=== PATIENT | female | born 1950 | race Caucasian/White ===

== ENCOUNTER 2022-11-22 10:48 | Emergency (ER) | payer MEDICARE, SELFPAY ==
--- NOTE | 2022-11-22 10:50 | ECG_ITS ---
Measurements Intervals [place] Rate: 112 P: 40 ME: 128 QRS: 35 QRSD: 90 T: 41 QT: 330 QTc: 452 Interpretive Statements SINUS TACHYCARDIA ABNORMAL ECG NO PREVIOUS ECG AVAILABLE FOR COMPARISON Electronically Signed On 11-23-2022 7:23:53 CDT by Lauro Helton D.O.
[2022-11-22 10:54] VITALS: BP 175/61; PULSE 110; RESP 18; TEMP 36.8; O2SAT 100
--- NOTE | 2022-11-22 11:13 | ED.ARRPALP ---
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 Patient was about few minutes to finish cataract surgery procedure, monitor showed tachycardia at 164 bpm, patient was asymptomatic, the staff referred patient to our emergency room with their impression that the patient have A-fib with RVR. Patient arrived with a monitor strip showing sinus tachycardia at 164 bpm, on arrival to the ED EKG showing sinus tachycardia at 112 bpm and patient was shaking, anxious and restless. Patient still me that she started feeling stressed at the end of the cataract procedure and was very worried. On arrival to the ED patient is still asymptomatic denying any fever, chills, nausea, vomiting, headache, chest pain, shortness of breath, palpitation, lightheadedness or dizziness. Related Data Home Medications Medication Instructions Recorded Confirmed alendronate 70 mg tablet 70 mg PO WEEKLY 09/21/19 11/15/22 aspirin 81 mg tablet,delayed 81 mg PO DAILY 09/21/19 11/15/22 release (Adult Low Dose Aspirin) calcium polycarbophil 625 mg 1,250 mg PO DAILY 09/21/19 11/15/22 tablet (FiberCon) doxycycline hyclate 20 mg tablet 20 mg PO Q12H 09/21/19 11/15/22 multivitamin (Multiple Vitamins 1 tablet PO DAILY 09/21/19 11/15/22 tablet) potassium gluconate 595 mg (99 mg) 595 mg PO DAILY 09/21/19 11/15/22 tablet magnesium gluconate 27 mg 27 mg PO DAILY 09/22/19 11/15/22 magnesium (500 mg) tablet (Mag-G) cholecalciferol (vitamin D3) 25 50 mcg PO DAILY 04/05/20 11/15/22 mcg (1,000 unit) capsule levocetirizine 5 mg tablet (Xyzal) 5 mg PO DAILY 04/05/20 11/15/22 Allergies Allergy/AdvReac Type Severity Reaction Status Date / Time calamine Allergy Intermediate Rash Verified 11/15/22 09:58 bacitracin Allergy Mild Rash Verified 11/15/22 09:58 adhesive Allergy Unknown BLISTERS Verified 11/15/22 09:58 Sulfa (Sulfonamide Allergy Unknown SWELLING Verified 11/15/22 09:58 Antibiotics) Review of Systems Review of Systems: All systems reviewed & are unremarkable except as noted in HPI and below PMFSH Past Medical History Medical History Hyperglycemia 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 Overweight (BMI 25.0-29.9) Family History Family History Sibling Patient's brother is in good health Family history of malignant neoplasm of gastrointestinal tract Patient's sister is Mother Family history of malignant neoplasm of breast in first degree relative, Onset Age: 42 Patient's mother is Father Patient's father is Acute myocardial infarction Social History Social History Smoking packs per day: 1 Smoking cigarettes per day: 20.0 Years smoked: 40 Smoking pack-years: 40.00 Smoking status: Former smoker Tobacco type: cigarettes Second hand tobacco smoke exposure: No Smoking end date: 06/30/19 Alcohol intake: never Substance use: never Lack of Transportation: No Lack of Food: Never True Current Housing: I Have Housing Concerned About Future Housing: No Difficulty Paying Gas/Electric Bills: No Currently Unemployed: No Education: Master's Degree or Higher Difficulty w/ Childcare or Family Care: No Exam Narrative: General appearance: Well-developed, well-nourished Skin: Normal color Head: Normocephalic, nontraumatic Eyes: Clear conjunctiva ENT: Oropharynx normal, ears normal, nose normal Neck: Supple, nontender Chest and respiratory: Airway patent, no respi
[2022-11-22] MEDS: LORazepam INJ (*CRX) 2 MG/ML VIAL 1 MG IV PUSH (11:18)
[2022-11-22 11:31] VITALS: BP 132/66; PULSE 98; RESP 17; O2SAT 95
--- NOTE | 2022-11-22 11:39 | PC.NURSE ---
Per MD mora, no blood work needed prior to discharge.
== END 2022-11-22 11:40 | disposition home or self-care (01) ==
PROVIDERS: Emergency Provider Emergency Medicine; PCP Internal Medicine
DX: R00.0 Tachycardia, unspecified (principal); F41.9 Anxiety disorder, unspecified; Z87.891 Personal history of nicotine dependence
CPT/HCPCS: 93005; 96374; 99284; J2060

== ENCOUNTER 2022-12-10 08:07 | Outpatient (CLI) | payer MEDICARE, SELFPAY ==
--- NOTE | ~2022-12-10 | US_ITS ---
Abdominal Sonogram: Real-time sonographic imaging of the abdomen was performed. Clinical History: Abnormal findings of blood chemistry Findings: The liver appears heterogeneous, with no evidence of mass lesion or bile duct dilatation. There is mild nodularity liver surface. Possible varices noted in the right upper quadrant. Main port al vein demonstrates normal direction of flow. The spleen is upper limits of normal in size without e vidence of focal lesion. The gallbladder is well distended, without definite gallstone. Probable mil d adenomyomatosis or cholesterolosis. The common bile duct measures 9 mm. The visualized pancreas, a scott, and IVC are unremarkable. The right kidney measures 12.6 cm in length and the left kidney reid ures 11.9 cm. There is no hydronephrosis or renal calculus. Impression: Probable mild adenomyomatosis or cholesterolosis of the gallbladder. Heterogeneous hepatic echotexture and mild nodularity the contour of liver suggests cirrhotic change. Correlate clinically and with LFTs. Borderline splenomegaly and possible varices, which could be associated with underlying cirrhosis. Reviewed, dictated and finalized at location M. Impression: Probable mild adenomyomatosis or cholesterolosis of the gallbladder. Heterogeneous hepatic echotexture and mild nodularity the contour of liver sugg ests cirrhotic change. Correlate clinically and with LFTs. Borderline splenomegaly and possible varices, which could be associated with un derlying cirrhosis.
--- NOTE | 2022-12-12 12:26 | WPDHOLTEREM ---
Holter/Event Monitor Holter/Event Monitor Date of procedure: 12/10/22 Holter/Event Procedure: 48 Hr Holter Monitor Indications: Abnormal blood chemistry Conclusion: 1. 48 hour holter monitor on 12/10/22. 2. Underlying rhythm is sinus rhythm. HR range 68-136 bpm; average HR 90 bpm. 3. There are 51 premature supraventricular complexes. No supraventricular tachycardia. 4. There are 17 premature ventricular complexes. No ventricular tachycardia. 5. No sinoatrial or atrioventricular blocks. No significant pauses greater than 2 seconds. 6. No symptoms available for correlation.
== END 2022-12-10 08:08 | disposition home or self-care (01) ==
PROVIDERS: PCP Internal Medicine; Visit Provider Internal Medicine
DX: R79.89 Other specified abnormal findings of blood chemistry (principal); R00.2 Palpitations
CPT/HCPCS: 76700; 93225; 93226

== ENCOUNTER 2023-03-25 01:30 | Day surgery (SDC) | payer MEDICARE, SELFPAY ==
[2023-03-14 08:29] VITALS: BMI 30.2
--- NOTE | 2023-03-21 11:19 | SUR.PREOP ---
Patient called regarding upcoming procedure. Message left on patient's voicemail regarding preop instructions and appointment times. Call back number given.
[2023-03-25 06:51] VITALS: BP 146/73; PULSE 90; RESP 18; TEMP 36.2; O2SAT 99; BMI 30.1
[2023-03-25] MEDS: LACTATED RINGERS 1,000 ML 150 ML IV CONT (06:53)
[2023-03-25 07:11] LABS: Glucose Point of Care 113 mg/dl (65-105)
--- NOTE | 2023-03-25 07:52 | WPDANESEPPF ---
Anes - Initial Pre Proc Eval Procedure: Operation Date: 03/25/23 08:00 Proposed Procedures p Esophagogastroduodenoscopy - Jose Maria Bee MD Date/Time: 03/25/23 07:52 Surgeon: Jose Maria Bee MD Pre Op Diagnosis: unspecified cirrhosis of liver Patient Data Age: 72 Gender: F Height: 1.63 m Weight: 79.6 kg Last Vital Signs Temp 97.1 F L 03/25/23 06:51 Pulse 90 03/25/23 06:51 Resp 18 03/25/23 06:51 BP 146/73 H 03/25/23 06:51 Pulse Ox 99 03/25/23 06:51 O2 Del Method Room Air 03/25/23 06:51 Allergies Allergy/AdvReac Type Severity Reaction Status Date / Time calamine Allergy Intermediate Rash Verified 03/25/23 06:47 bacitracin Allergy Mild Rash Verified 03/25/23 06:47 adhesive Allergy Unknown BLISTERS Verified 03/25/23 06:47 Sulfa (Sulfonamide Allergy Unknown SWELLING Verified 03/25/23 06:47 Antibiotics) Home Medications Medication Instructions Recorded Confirmed Type alendronate 70 mg tablet 70 mg PO WEEKLY 09/21/19 03/25/23 History aspirin 81 mg tablet,delayed 81 mg PO DAILY 09/21/19 03/25/23 History release (Adult Low Dose Aspirin) calcium polycarbophil 625 mg 1,250 mg PO DAILY 09/21/19 03/25/23 History tablet (FiberCon) multivitamin (Multiple Vitamins 1 tablet PO DAILY 09/21/19 03/25/23 History tablet) potassium gluconate 595 mg (99 mg) 595 mg PO DAILY 09/21/19 03/25/23 History tablet magnesium gluconate 27 mg 27 mg PO DAILY 09/22/19 03/25/23 History magnesium (500 mg) tablet (Mag-G) blood-glucose meter (OneTouch #1 ea 11/05/19 03/25/23 Rx Verio Meter) cholecalciferol (vitamin D3) 25 50 mcg PO DAILY 04/05/20 03/25/23 History mcg (1,000 unit) capsule levocetirizine 5 mg tablet (Xyzal) 5 mg PO DAILY PRN Allergies 04/05/20 03/25/23 History ergocalciferol (vitamin D2) 1,250 50,000 unit PO WEEKLY #13 caps 10/22/22 03/25/23 Rx mcg (50,000 unit) capsule atorvastatin 20 mg tablet 20 mg PO DAILY #90 tabs 11/21/22 03/25/23 Rx lisinopril 20 mg tablet 20 mg PO DAILY #90 tabs 12/03/22 03/25/23 Rx levothyroxine 125 mcg tablet 125 mcg PO DAILY #90 tabs 01/21/23 03/25/23 Rx metformin 500 mg tablet 500 mg PO .COMPLEX #270 tabs 02/23/23 03/25/23 Rx blood sugar diagnostic (OneTouch #50 strips 03/12/23 03/25/23 Rx Verio test strips) Adult Probiotic 1 tab-cap PO DAILY 03/14/23 03/25/23 History cetirizine 5 mg tablet 5 mg PO DAILY 03/14/23 03/25/23 History doxycycline hyclate 20 mg tablet 20 mg PO BID 03/14/23 03/25/23 History fiber 1 tablet PO DAILY 03/14/23 03/25/23 History fluticasone propionate 50 2 spray intranasal DAILY PRN 03/14/23 03/25/23 History mcg/actuation nasal Allergy Symptoms spray,suspension Laboratory Tests 03/25/23 07:09 POC Capillary Glucose 113 H mg/dl (65-105) Patient hx anesthesia problems: none Family hx anesthesia problems: none Results Review: All pre-operative results and documents have been reviewed as part of the pre-operative evaluation. 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
--- NOTE | 2023-03-25 07:54 | PM.HPGS ---
History of Present Illness History of Present Illness Consent: Risks, benefits, and alternatives have been discussed and questions answered. Patient agrees to proceed with procedure. Chief complaint: unspecified cirrhosis of liver Narrative: Edis Zamarripa is a 72 year old female with harp cirrhosis here for egd to assess for varices, etc Review of Systems Constitutional: Constitutional: Denies headache(s) and Denies weakness Eyes: Eyes: Denies blurry vision ENT: Reports Normal hearing present, Denies headache(s) and Denies neck pain Cardiovascular: Cardiovascular: Denies chest pain and Denies dyspnea Respiratory: Respiratory: Denies dyspnea Gastrointestinal: Gastrointestinal: Reports no additional gastrointestinal complaints Genitourinary: Genitourinary: Denies dysuria Musculoskeletal: Musculoskeletal: Denies neck pain Integumentary/Breasts: Skin/Breast: Denies dry skin Neurologic: Reports Normal hearing present, Denies headache(s) and Denies weakness Psychiatric: Psychiatric: Denies anxiety Endocrine: Endocrine: Denies change in body appearance Hematologic/Lymphatic: Hematologic/Lymphatic: Denies easy bleeding Allergic/Immunologic: Allergic/Immunologic: Denies urticaria PMFSH Past Medical History Medical History Cirrhosis of liver Hyperglycemia 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 Overweight (BMI 25.0-29.9) Surgical History Surgical History History of cataract surgery left eye 11/22/22 Family History Family History Sibling Patient's brother is in good health Family history of malignant neoplasm of gastrointestinal tract Patient's sister is Mother Family history of malignant neoplasm of breast in first degree relative, Onset Age: 42 Patient's mother is Father Patient's father is Acute myocardial infarction Social History Social History Smoking packs per day: 1 Smoking cigarettes per day: 20.0 Years smoked: 40 Smoking pack-years: 40.00 Smoking status: Former smoker Tobacco type: cigarettes Second hand tobacco smoke exposure: No Smoking end date: 06/30/19 Alcohol intake: never Substance use: never Lack of Transportation: No Lack of Food: Never True Current Housing: I Have Housing Concerned About Future Housing: No Difficulty Paying Gas/Electric Bills: No Currently Unemployed: No Education: Master's Degree or Higher Difficulty w/ Childcare or Family Care: No Living arrangements: with family Spiritual care concerns: No Meds Home Medications and Allergies Home Medications Medication Instructions Recorded Confirmed Type alendronate 70 mg tablet 70 mg PO WEEKLY 09/21/19 03/25/23 History aspirin 81 mg tablet,delayed 81 mg PO DAILY 09/21/19 03/25/23 History release (Adult Low Dose Aspirin) calcium polycarbophil 625 mg 1,250 mg PO DAILY 09/21/19 03/25/23 History tablet (FiberCon) multivitamin (Multiple Vitamins 1 tablet PO DAILY 09/21/19 03/25/23 History tablet) potassium gluconate 595 mg (99 mg) 595 mg PO DAILY 09/21/19 03/25/23 History tablet magnesium gluconate 27 mg 27 mg PO DAILY 09/22/19 03/25/23 History magnesium (500 mg) tablet (Mag-G) blood-glucose meter ([employer] #1 ea 11/05/19 03/25/23 Rx Verio Meter) cholecalciferol (vitamin D3) 25 50 mcg PO DAILY 04/05/20 03/25/23 History mcg (1,000 unit) capsule levocetirizine 5 mg tablet (Xyzal) 5 mg PO DAILY PRN Allergies 04/05/20 03/25/23 History ergocalciferol (vitamin D2) 1,250 50,000 unit PO WEEKLY #13 caps 10/22/22 03/25/23 Rx mcg (50,000 unit) capsule atorvastatin 20 mg tablet 20 mg PO DAILY #90 tabs 11/21/22 03/25/23 Rx lisinopril 20 mg tablet 20 mg PO DAILY #90 tabs 12/03/22
[2023-03-25 08:10] VITALS: BP 105/46; PULSE 87; RESP 20; O2SAT 95
[2023-03-25 08:20] VITALS: BP 119/55; PULSE 79; RESP 16; O2SAT 97
[2023-03-25 08:30] VITALS: BP 127/69; PULSE 84; RESP 22; O2SAT 99
== END 2023-03-25 08:33 | disposition home or self-care (01) ==
PROVIDERS: PCP Internal Medicine; Visit Provider Internal Medicine Gastroenterology
PROC: 0DJ08ZZ Inspection of Upper Intestinal Tract, Via Natural or Artificial Opening Endoscopic (ICD-10-PCS; CPT 43235; principal; 2023-03-25 08:00)
DX: K74.60 Unspecified cirrhosis of liver (principal); K44.9 Diaphragmatic hernia without obstruction or gangrene; K29.70 Gastritis, unspecified, without bleeding; Z79.82 Long term (current) use of aspirin; Z79.84 Long term (current) use of oral hypoglycemic drugs; Z87.891 Personal history of nicotine dependence; E66.9 Obesity, unspecified; Z68.30 Body mass index [BMI] 30.0-30.9, adult
CPT/HCPCS: 43235; 82948; J2704; J7120

== ENCOUNTER 2023-08-18 07:28 | Outpatient (CLI) | payer MEDICARE, SELFPAY ==
--- NOTE | ~2023-08-18 | CT_ITS ---
CT of the Abdomen and Pelvis: Indication: Cirrhosis Technique: 2.5 mm axial scans were obtained through the abdomen and pelvis following intravenous adm inistration of 100 cc of Omnipaque 350. Dose reduction technique was used on this scan by utilizing a utomated exposure control and iterative reconstruction technique. The dose-length product (DLP) was 5 50.60 mGy-cm. Findings: Scans through the lung bases demonstrate large calcified right basilar granuloma. Probable tiny gallstones. Liver demonstrates a somewhat nodular morphology, suggestive of cirrhosis. No focal hepatic mass or biliary dilatation. There are prominent varices in the right abdomen. The sp ann marie, pancreas, adrenals and kidneys are within normal limits. There are atherosclerotic calcificatio ns of the aorta. No lymphadenopathy. No bowel obstruction or bowel wall thickening. There is no evidence to suggest acute appendicitis. Images through the pelvis were performed. Urinary bladder unremarkable. No pelvic mass seen. No ascit es. Impression: Cirrhotic change of the liver with right abdominal varices. Probable tiny gallstones. Reviewed, dictated and finalized at location . Impression: Cirrhotic change of the liver with right abdominal varices. Probable tiny gallstones.
== END 2023-08-18 07:29 | disposition home or self-care (01) ==
PROVIDERS: PCP Internal Medicine; Visit Provider Nurse Practitioner
DX: K74.60 Unspecified cirrhosis of liver (principal); R74.8 Abnormal levels of other serum enzymes; L98.9 Disorder of the skin and subcutaneous tissue, unspecified
CPT/HCPCS: 74177; Q9967

== ENCOUNTER 2024-03-03 01:31 | Day surgery (SDC) | payer MEDICARE, SELFPAY ==
[2024-02-20 10:08] VITALS: BMI 30.6
[2024-03-03 08:28] VITALS: BP 178/62; PULSE 97; RESP 18; TEMP 36.4; O2SAT 96; BMI 29.5
[2024-03-03 08:45] LABS: Glucose Point of Care 123 mg/dl (65-105)
[2024-03-03] MEDS: LACTATED RINGERS 1,000 ML 150 ML IV CONT (08:49)
--- NOTE | 2024-03-03 09:06 | WPDANESEPPF ---
Anes - Initial Pre Proc Eval Procedure: Operation Date: 03/03/24 10:00 Proposed Procedures p Screening Colonoscopy - Jamison Pablo MD Date/Time: 03/03/24 09:06 Surgeon: Jamison Pablo MD Pre Op Diagnosis: Hx Colon Polyps Patient Data Age: 73 Gender: F Height: 1.63 m Weight: 78 kg Last Vital Signs Temp 97.6 F 03/03/24 08:28 Pulse 97 03/03/24 08:28 Resp 18 03/03/24 08:28 BP 178/62 H 03/03/24 08:28 Pulse Ox 96 03/03/24 08:28 O2 Del Method Room Air 03/03/24 08:28 Allergies Allergy/AdvReac Type Severity Reaction Status Date / Time calamine Allergy Intermediate Rash Verified 03/03/24 08:26 bacitracin Allergy Mild Rash Verified 03/03/24 08:26 adhesive Allergy Unknown BLISTERS Verified 03/03/24 08:26 Sulfa (Sulfonamide Allergy Unknown SWELLING Verified 03/03/24 08:26 Antibiotics) Home Medications Medication Instructions Recorded Confirmed Type aspirin 81 mg tablet,delayed 81 mg PO DAILY 09/21/19 03/03/24 History release (Adult Low Dose Aspirin) multivitamin (Multiple Vitamins 1 tablet PO DAILY 09/21/19 03/03/24 History tablet) potassium gluconate 595 mg (99 mg) 595 mg PO DAILY 09/21/19 03/03/24 History tablet magnesium gluconate 27 mg 27 mg PO DAILY 09/22/19 03/03/24 History magnesium (500 mg) tablet (Mag-G) blood-glucose meter (OneTouch #1 ea 11/05/19 03/03/24 Rx Verio Meter) levocetirizine 5 mg tablet (Xyzal) 5 mg PO DAILY PRN Allergies 04/05/20 03/03/24 History blood sugar diagnostic (OneTouch #50 strips 03/12/23 03/03/24 Rx Verio test strips) Adult Probiotic 1 tab-cap PO DAILY 03/14/23 03/03/24 History doxycycline hyclate 20 mg tablet 20 mg PO BID 03/14/23 03/03/24 History fiber 1 tablet PO DAILY 03/14/23 03/03/24 History fluticasone propionate 50 2 spray intranasal DAILY PRN 03/14/23 03/03/24 History mcg/actuation nasal Allergy Symptoms spray,suspension ergocalciferol (vitamin D2) 1,250 50,000 unit PO WEEKLY #13 caps 07/15/23 03/03/24 Rx mcg (50,000 unit) capsule lisinopril 20 mg tablet 20 mg PO DAILY #90 tabs 10/13/23 03/03/24 Rx levothyroxine 100 mcg tablet 100 mcg PO DAILY #90 tabs 10/27/23 03/03/24 Rx metformin 500 mg tablet 500 mg PO .COMPLEX #270 tabs 01/14/24 03/03/24 Rx betamethasone valerate 0.1 % 1 applic topical BID PRN Rash 02/20/24 03/03/24 History topical cream furosemide 20 mg tablet (Lasix) 20 mg PO PRN PRN Edema 02/20/24 03/03/24 History Laboratory Tests 03/03/24 08:39 POC Capillary Glucose 123 H mg/dl (65-105) Patient hx anesthesia problems: none Family hx anesthesia problems: none Results Review: All pre-operative results and documents have been reviewed as part of the pre-operative evaluation. 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 Nodular lesion on surface of skin Overweight (BMI 25.0-29.9) Peripheral edema Splenomegaly Surgical History Surgical History History of cataract surgery left eye 11/22/22 Family History Family History Sibling Patient's brother is in good health Family history of malignant neoplasm of gastrointestinal tract Patient's sister is Mother Family history of malignant neoplasm of breast in first degree relative, Onset Age: 42 Patient's mother is Father Patient's father is Acute myocardial infarction Social History Social History Smoking packs per day: 1 Smoking cigarettes per day: 20.0 Years smoked: 40 Smoking pack-years: 40.00 Smoking status: Former smoker Tobacco type:
--- NOTE | 2024-03-03 09:36 | PM.IMHP ---
H&P: HPI History of Present Illness Date/Time: 03/03/24 09:36 Chief Complaint: History of colon polyps Narrative: the patient is here for her surveillance colonoscopy. 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 Nodular lesion on surface of skin Overweight (BMI 25.0-29.9) Peripheral edema Splenomegaly Surgical History Surgical History History of cataract surgery left eye 11/22/22 Family History Family History Sibling Patient's brother is in good health Family history of malignant neoplasm of gastrointestinal tract Patient's sister is Mother Family history of malignant neoplasm of breast in first degree relative, Onset Age: 42 Patient's mother is Father Patient's father is Acute myocardial infarction Social History Social History Smoking packs per day: 1 Smoking cigarettes per day: 20.0 Years smoked: 40 Smoking pack-years: 40.00 Smoking status: Former smoker Tobacco type: cigarettes Second hand tobacco smoke exposure: No Smoking end date: 06/30/19 Alcohol intake: never Substance use: never Lack of Transportation: No Lack of Food: Never True Current Housing: I Have Housing Concerned About Future Housing: No Difficulty Paying Gas/Electric Bills: No Currently Unemployed: No Education: Master's Degree or Higher Difficulty w/ Childcare or Family Care: No Living arrangements: with family Spiritual care concerns: No Meds Home Medications and Allergies Home Medications Medication Instructions Recorded Confirmed Type aspirin 81 mg tablet,delayed 81 mg PO DAILY 09/21/19 03/03/24 History release (Adult Low Dose Aspirin) multivitamin (Multiple Vitamins 1 tablet PO DAILY 09/21/19 03/03/24 History tablet) potassium gluconate 595 mg (99 mg) 595 mg PO DAILY 09/21/19 03/03/24 History tablet magnesium gluconate 27 mg 27 mg PO DAILY 09/22/19 03/03/24 History magnesium (500 mg) tablet (Mag-G) blood-glucose meter (OneTouch #1 ea 11/05/19 03/03/24 Rx Verio Meter) levocetirizine 5 mg tablet (Xyzal) 5 mg PO DAILY PRN Allergies 04/05/20 03/03/24 History blood sugar diagnostic (OneTouch #50 strips 03/12/23 03/03/24 Rx Verio test strips) Adult Probiotic 1 tab-cap PO DAILY 03/14/23 03/03/24 History doxycycline hyclate 20 mg tablet 20 mg PO BID 03/14/23 03/03/24 History fiber 1 tablet PO DAILY 03/14/23 03/03/24 History fluticasone propionate 50 2 spray intranasal DAILY PRN 03/14/23 03/03/24 History mcg/actuation nasal Allergy Symptoms spray,suspension ergocalciferol (vitamin D2) 1,250 50,000 unit PO WEEKLY #13 caps 07/15/23 03/03/24 Rx mcg (50,000 unit) capsule lisinopril 20 mg tablet 20 mg PO DAILY #90 tabs 10/13/23 03/03/24 Rx levothyroxine 100 mcg tablet 100 mcg PO DAILY #90 tabs 10/27/23 03/03/24 Rx metformin 500 mg tablet 500 mg PO .COMPLEX #270 tabs 01/14/24 03/03/24 Rx betamethasone valerate 0.1 % 1 applic topical BID PRN Rash 02/20/24 03/03/24 History topical cream furosemide 20 mg tablet (Lasix) 20 mg PO PRN PRN Edema 02/20/24 03/03/24 History Allergies Allergy/AdvReac Type Severity Reaction Status Date / Time calamine Allergy Intermediate Rash Verified 03/03/24 08:26 bacitracin Allergy Mild Rash Verified 03/03/24 08:26 adhesive Allergy Unknown BLISTERS Verified 03/03/24 08:26 Sulfa (Sulfonamide Allergy Unknown SWELLING Verified 03/03/24 08:26 Antibiotics)
[2024-03-03 10:09] VITALS: BP 114/64; PULSE 91; RESP 20; O2SAT 96
[2024-03-03 10:19] VITALS: BP 121/53; PULSE 80; RESP 19; O2SAT 100
[2024-03-03 10:28] VITALS: BP 131/71; PULSE 82; RESP 22; O2SAT 100
== END 2024-03-03 10:42 | disposition home or self-care (01) ==
PROVIDERS: PCP Internal Medicine; Referring Provider Internal Medicine Gastroenterology; Visit Provider Internal Medicine Gastroenterology
PROC: 0DJD8ZZ Inspection of Lower Intestinal Tract, Via Natural or Artificial Opening Endoscopic (ICD-10-PCS; CPT 45378; principal; 2024-03-03 10:00)
DX: Z12.11 Encounter for screening for malignant neoplasm of colon (principal); D12.2 Benign neoplasm of ascending colon; D12.4 Benign neoplasm of descending colon; K63.5 Polyp of colon; K57.30 Diverticulosis of large intestine without perforation or abscess without bleeding; K74.60 Unspecified cirrhosis of liver; R73.9 Hyperglycemia, unspecified; Z79.82 Long term (current) use of aspirin; Z79.84 Long term (current) use of oral hypoglycemic drugs; Z98.890 Other specified postprocedural states; Z87.891 Personal history of nicotine dependence; Z80.0 Family history of malignant neoplasm of digestive organs; Z80.3 Family history of malignant neoplasm of breast; Z82.49 Family history of ischemic heart disease and other diseases of the circulatory system
CPT/HCPCS: 45385; 82948; 88305; J2003; J2704; J7120

== ENCOUNTER 2024-03-15 07:11 | Outpatient (CLI) | payer MEDICARE, SELFPAY ==
--- NOTE | ~2024-03-15 | US_ITS ---
EXAMINATION: US right upper quadrant DATE: 03/15/2024 09:34 INDICATION: Unspecified cirrhosis of liver. TECHNIQUE: Multiple grayscale and Doppler ultrasound images of the abdomen were obtained. COMPARISON: CT abdomen and pelvis 08/18/2023 FINDINGS: The visualized portions of the head, body, and tail of the pancreas are normal. The liver d emonstrates surface nodularity, consistent with cirrhosis. There is antegrade flow in main portal vei n. The gallbladder is distended, likely secondary to fasting. There are gallstones in the gallbladder . No gallbladder wall thickening or sonographic López sign. The common duct is normal and measures 5 mm. IMPRESSION: 1. Cirrhosis of the liver. 2. Cholelithiasis. Reviewed, dictated and finalized at location B.
== END 2024-03-15 07:12 | disposition home or self-care (01) ==
PROVIDERS: PCP Internal Medicine; Visit Provider Internal Medicine Gastroenterology
DX: K74.60 Unspecified cirrhosis of liver (principal); K76.0 Fatty (change of) liver, not elsewhere classified; K80.20 Calculus of gallbladder without cholecystitis without obstruction
CPT/HCPCS: 76705

== ENCOUNTER 2024-07-20 07:45 | Outpatient (CLI) | payer MEDICARE, SELFPAY | END 2024-07-20 07:46 | disposition home or self-care (01) | PROVIDERS: PCP Internal Medicine; Visit Provider Internal Medicine Gastroenterology | DX: K80.20 Calculus of gallbladder without cholecystitis without obstruction (principal); K74.60 Unspecified cirrhosis of liver; R79.89 Other specified abnormal findings of blood chemistry | CPT/HCPCS: 76705 ==

== ENCOUNTER 2024-12-14 13:30 | Outpatient (CLI) | payer MEDICARE, SELFPAY ==
--- NOTE | ~2024-12-14 | DEXA_ITS ---
Bone Density Report Name: AAMIR RANGEL Age: 74 Sex: Female Ethnicity: White Date of : 1950 Indication: postmenopausal; screening for osteoporosis; height loss; cancer; Referring Provider: BRAYDON SANCHEZ Study: Bone densitometry was performed. Exam Date: December 14, 2024 Accession number: [id number] Bone Density: Region BMD T-score Z-score Classification AP Spine(L1-L4) 1.152 1.0 3.4 Normal Femoral Neck (Left) 0.693 -1.4 0.7 Osteopenia Total Hip (Left) 0.897 -0.4 1.4 Normal Femoral Neck (Right) 0.661 -1.7 0.4 Osteopenia Total Hip (Right) 0.841 -0.8 1.0 Normal Total Hip Mean 0.869 -0.6 1.2 Normal World Health Organization criteria for BMD impression classify patients as: Normal (T-score at or above -1.0), Osteopenia (T-score between -1.0 and -2.5), or Osteoporosis (T-score at or below -2.5). 10-year Fracture Risk(1): Major Osteoporotic Fracture 11% Hip Fracture 2.4% Reported Risk Factors: [place] (), Neck BMD=0.661, BMI=32.6 (1) FRAX(R) Version 3.08. Fracture probability calculated for an untreated patient. Fracture probability may be lower if the patient has received treatment. Clinical Information Provided by Patient: Has used the following medications: Fosamax (i.e. alendronate), Vitamin D Has the following medical conditions: Cancer Patient maximum height was 64 Menopause Age: 39 No regular weight bearing exercise Drinks caffeinated beverages Onset of menses at age 11 Number of children 0 Impression: The patient has low bone mass, based on the Right Femoral Neck T-score. The patient has an estimated ten-year risk of hip fracture of 2.4% and an estimated ten-year risk of major fracture of 11%, based on the WHO FRAX algorithm. Discussion: BONE DENSITY IS LOW AT ONE OR MORE SKELETAL SITES. This patient's lowest T-score is low at one or more skeletal sites. It meets the World Health Organization's (WHO) criteria for ?low bone mass? (T-score between -1.0 and -2.5). The patient's 10-year risk of fracture as calculated by FRAX is less than the threshold where pharmacological therapy is recommended by the National Osteoporosis Foundation (NOF). However, all treatment decisions require clinical judgment and consideration of individual patient factors, including patient preferences, comorbidities, previous drug use, risk factors not captured in the FRAX model (e.g., frailty, falls, vitamin D deficiency, increased bone turnover, interval significant decline in bone density) and possible under or overestimation of fracture risk by FRAX. The patient should follow a healthful lifestyle (good nutrition with adequate calcium and vitamin D, and appropriate weight-bearing exercise). Follow-Up: Consider repeating this study in 2 to 3 years to reassess this patient's status, or sooner if there is some new clinical indication. Reported by: KEVIN on 12/14/2024 2:18:00 PM. Reviewed, dictated and finalized at location A.
--- OUTSIDE RECORDS SUMMARY | 2024-12-14 13:33 | XMS_ITS | Clinical Summary ---
Author Organization [facility] Address [address] [place] [address] Phone Care Team Providers Care Or Scrub Tech Name Role Phone Prince Torres DO Primary Care Provider [phone] Allergies Active Allergy Reactions Criticality Noted Date Comments Bacitracin Rash Medium 04/21/2017 Other Rash 04/21/2017 Adhesive on band-aids Sulfa Antibiotics Rash,Swelling High 04/21/2017 Medications alendronate (FOSAMAX) 70 MG Tablet Take 70 mg by mouth every 7 days. Takes on Sundays. Active Multiple Vitamins-Minerals (MULTIVITAMIN PO) Take 1 Tab by mouth daily. Active Aspirin 81 MG Tablet Take 81 mg by mouth daily. Active Levocetirizine Dihydrochloride (XYZAL PO) Take 1 Tab by mouth daily. Active Calcium Carbonate (CALCIUM 600 PO)Indications:OTC Take 1,200 Tabs by mouth daily. Indications: OTC Active FIBER PO Take 2 Tabs by mouth daily. Active POTASSIUM PO Take 595 mg by mouth daily. Active Cholecalciferol (VITAMIN D3) 1000 units Capsule Take 1 Cap by mouth daily. Active atorvastatin (LIPITOR) 20 MG Tablet Take 20 mg by mouth every evening. Active levothyroxine (SYNTHROID) 100 MCG Tablet Take 112 mcg by mouth daily. Active Lactobacillus (PROBIOTIC ACIDOPHILUS PO) Take 1 Tab by mouth daily. Active cetirizine-pseudoep hedrine (ALL DAY ALLERGY D) 5-120 MG TABLET SR 12 HR Take 1 Tab by mouth daily. Active azelastine (ASTELIN) 0.1 % Solution 2 Sprays by Nasal route 2 times daily. Use in each nostril as directed Active Encounters Date Type Department Care Team Description 11/15/2024 6:49 AM CDT - 11/15/2024 11:59 PM CDT Hospital Encounter [facility] Mamm[facility] [address] [place] [address] Tico Otoole MD Discharge Disposition: Discharged to home or Selfcare 11/15/2024 Travel 10/12/2024 Transcribe Orders [facility] Central Scheduling [address] [place] [address] Tico Otoole MD Encounter for screening mammogram for malignant neoplasm of breast (Primary Dx) from Last 3 Months Family History Medical History Relation Name Comments Congestive Heart Failure Father Diabetes Father Breast Cancer Mother Cancer Mother Breast and Bone Cancer Other-comment Sister 1 scleradoma Cancer Sister 2 rectal Relation Name Status Comments Father Mother Sister 1 Sister 2 Social History Tobacco Use Types Packs/Day Years Used Date Smoking Tobacco: Former Cigarettes 0.3 50 0 09/10/1968 - 09/10/2018 Smokeless Tobacco: Never Alcohol Use Standard Drinks/Week Comments No 0 (1 standard drink = 0.6 oz pur e alcohol) one drink per year PHQ-2 Answer Date Recorded PHQ-2 Score 0 01/30/2019 Comments No Sex and Gender Information Value Date Recorded Sex Assigned at Not on file Legal Sex Female 9:22 PM CDT Gender Identity Not on file Sexual Orientation Not on file Last Filed Vital Signs Vital Sign Reading Time Taken Comments Blood Pressure 117/61 11/13/2018 6:41 AM CDT Pulse 85 11/13/2018 6:41 AM CDT Temperature 36.1 C (97 F) 11/13/2018 6:41 AM CDT Respiratory Rate 21 11/13/2018 6:41 AM CDT Oxygen Saturation 97% 11/13/2018 6:41 AM CDT Inhaled Oxygen Concentration - - Weight 81.6 kg (180 lb) 10/13/2018 7:00 AM CDT Height 162.6 cm (5' 4) 10/13/2018 7:00 AM CDT Body Mass Index 30.9 10/13/2018 7:00 AM CDT Plan of Treatment Health Maintenance Due Date Last Done Comments DEXA Bone Density 1950 Hepatitis C Virus (HCV) Screening 1950 TdaP Immunization 1950 Cologuard 1994 Immunochemical Fecal Occult Blood 1994 Colonoscopy 11/14/2023 11/13/2018, 07/17, 04/30/2017 Colorectal Cancer Screening 11/14/2023 Influenza Immunization (#1) 01/17/202501/17, 03/03/2023, 02/26/2022, Additional history exists Zoster Immunization Completed 06/02/2018, 03/05/2018, 07/15/2014 Respiratory Syncytial Virus (RSV) Immunization (Adult) Completed 03/17/2023 Pneumococcal Immunization (50+ years) Completed 04/19/2024, 01/16/2018, 01/15/2017 Pneumococcal Immunization Combined Discontinued 04/19/2024, 01/16/2018, 01/15/2017 SARS-COV-2 Immunization Completed 09/18/19, 01/30/2024, 04/21/2023, Additional history exists Mammogram Discontinued 11/15/2024, 10/18, 09/05/2022, Additional history exists Hepatitis B Immunization Aged Out No longer eligible based on patient's age to complete this topic Human Papillomavirus (HPV) Immunization Aged Out No longer eligible based on patient's age to complete this topic Meningococcal Immunization (ACWY) Aged Out No longer eligible based on patient's age to complete this topic Rotavirus Immunization Aged Out No lo nger eligible based on patient's age to complete this topic Procedures Procedure Name Priority Date/Time Associated Diagnosis Comments ISH SCREENING BILATERAL DIGITAL W CAD W ARMAND Routine 11/15/2024 7:10 AM CDT Encounter for screening mammogram for malignant neoplasm of breast from Last 3 Months Results * ISH SCREENING BILATERAL DIGITAL W CAD W ARMAND (11/15/2024 7:10 AM CDT) Anatomical Region Laterality Modality breast Bilateral Mammography 11/15/2024 8:29 AM CDT Narrative 11/16/2024 1:39 PM CDT - ISH SCREENING BILATERAL DIGITAL W CAD W ARMAND BILATERAL DIGITAL SCREENING MAMMOGRAM 3D/2D WITH CAD WITH MEDIOLATERAL OBLIQUE CRANIOCAUDAL: 11/15/2024 The study was acquired using digital technology and interpreted from soft copy. Current study was also evaluated with ICAD version 7.2. 2D digital mammographic views, as well as 3D digital tomosynthesis were performed in the CC and MLO projections. CLINICAL: Routine screening. Patient has no complaints. She reports a 12 pound weight increase. No personal history of cancer. Mother with premenopausal breast cancer. COMPARISONS: Comparison is made to exams dated: 11/10/2023, 09/05/2022, and 08/20/2021 [facility]. BREAST TISSUE:There are scattered areas of fibroglandular density. FINDINGS: No significant masses, calcifications, or other findings are seen in either breast. There has been no significant interval change. IMPRESSION: NEGATIVE There is no mammographic evidence of malignancy. A 1 year screening mammogram is recommended. A letter will be sent to the patient with these results. The patient will be entered into a reminder system with a target due date of 1 year for her next screening exam. Electronically signed by: Deandra cabrera/nikolas:11/15/2024 22:15:49 Cna Pct(s): RT Cristina(R)(M), [facility] letter sent: Normal Exam Reading location: [facility] Mammogram BI-RADS: Category 1: Negative Procedure Note Deandra Nguyễn MD - 11/16/2024 - [facility] SCREENING BILATERAL DIGITAL W CAD W ARMAND BILATERAL DIGITAL SCREENING MAMMOGRAM 3D/2D WITH CAD WITH MEDIOLATERAL OBLIQUE CRANIOCAUDAL: 11/15/2024 The study was acquired using digital technology and interpreted from soft copy. Current study was also evaluated with ICAD version 7.2. 2D digital mammographic views, as well as 3D digital tomosynthesis were performed in the CC and MLO projections. CLINICAL: Routine screening. Patient has no complaints. She reports a 12 pound weight increase. No personal history of cancer. Mother with premenopausal breast cancer. COMPARISONS: Comparison is made to exams dated: 11/10/2023, 09/05/2022, and 08/20/2021 [facility]. BREAST TISSUE:There are scattered areas of fibroglandular density. FINDINGS: No significant masses, calcifications, or other findings are seen in either breast. There has been no significant interval change. IMPRESSION: NEGATIVE There is no mammographic evidence of malignancy. A 1 year screening mammogram is recommended. A letter will be sent to the patient with these results. The patient will be entered into a reminder system with a target due date of 1 year for her next screening exam. Electronically signed by: Deandra cabrera/nikolas:11/15/2024 22:15:49 Cna Pct(s): RT Cristina(R)(M), [facility] letter sent: Normal Exam Reading location: [place] Mammogram BI-RADS: Category 1: Negative Tico Otoole MD IMG MAMMO ORDERABLES F inal Result from Last 3 Months Insurance MEDICARE C [employer] Care Teams Or Scrub Tech Relationship Specialty Start Date End Date Prince Torres DO [address] [place] [address] PCP - General Internal Medicine 10/12/24
--- OUTSIDE RECORDS SUMMARY | 2024-12-14 13:33 | XMS_ITS | Data Portability ---
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 Not available 02/13/2024 11:12:46 11/12/2024 11/12/2024 Will plan for diagnostic hysteroscopy with D&C risks, benefits, and alternatives discussed, anxious to proceed. Not available 11/12/2024 14:23:33 Plan of Treatment Reminders Order Date Submit Date Provider Last Modified By Organization Details Last Modified Time Details Appointments ANNUAL 30 2024 10:00A M Vincent Logan MD Not available Not available Not available Lab None recorded. Referral None recorded. Procedures None recorded. Surgeries None recorded. Imaging MAMMO, screening , digital, bilateral 2021 022 [email or web address] [facility], [address] [place], [address], 02/26/2022 09:30:20 Medication Orders None recorded. Patient TargetsNo targets recorded. Patient Instructions Encounter Date Encounter Id Patient Instructions Last Modified By Organization Details Last Modified Time 01/22/2022 [id number] learning about breast cancer screening Not available 01/22/2022 10:15:49 11/12/2024 [id number] vaginal bleeding after menopause: care instructions Not available 11/12/2024 14:23:34 Reason for Referral None Reported. Results Created Date Observation Date Name Description Value Unit Range Abnormal Flag Note LastModifiedBy Organization Detail LastModifiedTime 09/06/1909/05/2022 MAMMO , scree lali, digit al, bilat eral No observ ation record ed. BARCODE [facility] [address] [place], [address], 09/05/2022 16:39:10 11/12/19 24 11/10/2023 MAMMO , scree lali, digit al, bilat eral No observ ation record ed. BARCODE Not Available 2023 14:12:52 Result Notes None recorded. Problems Name Problem SNOMED Code Status Onset Date Resolution Date Notes Provider Name and Address Organization Details Recorded Time Menopause present 312831765 Active Vincent Logan MD Attn: Jazz worley,[address] [place], [address] [place] [address] 6 10:52:46 Problem Notes None recorded. Procedures Surgical History Date Name Laterality Status Provider Name and Address Organization Details Recorded Time 11/26/19 25 dilation and curettage of uterus completed Cathleen Ames RN [facility] 11/26/2024 09:54:16 11/26/19 25 HYSTEROSCOPY, SURGICAL, WITH BIOPSY OF ENDOMETRIUM AND/OR POLYPECTOMY (SURG) completed Not Available [facility] 11/26/2024 09:54:41 11/10/19 24 Most Recent Mammogram completed Cathleen Ames RN [facility] 11/12/2023 14:07:31 01/03/20 17 Date of Last Pap Smear completed Cathleen Ames RN [facility] 01/02/2018 14:53:28 Imaging Results None recorded. Procedure Notes None recorded. Medical Equipment None Reported. Allergies Allergen ID Allergen Name Allergen Category Reaction Reaction Severity Criticality Documentation Date Start Date Code Code System Note Provider Name and Address Organization Details Recorded Time 83557 Substance with sulfonami de structure and antibacte rial mechanism of action (substanc e) medicatio n Not available Not available Not available 11/03/2015 63393 8003 SNOMED Erica hummel, [facility] 6 10:30:42 16051 bacitraci n medicatio n Not available Not available Not available 11/03/2015 1291 RxNorm Erica hummel, [place] - [facility] 6 10:30:42 88696 adhesive environme nt,medica tion Not available Not available Not available 11/03/2015 86625 UNK Erica hummel, [facility] 6 10:30:42 Medications Name Sig Start Date Stop Date Status Note LastModified by Organization Details LastModified Time amoxicillin 500 mg capsule TAKE ONE CAPSULE BY MOUTH THREE TIMES DAILY UNTIL ALL TAKEN 01/18 completed Not Available Not Available Not Available metformin 500 mg tablet TAKE 2 TABLETS BY MOUTH EVERY MORNING AND 1 TABLET IN THE EVENING active Not Available Not Available No t Available levothyroxi ne 137 mcg tablet TAKE 1 TABLET BY MOUTH EVERY DAY active Not Available Not Available No t Available prednisone 10 mg tablet 01/18 completed Not Available Not Available Not Available atorvastati n 20 mg tablet TAKE 1 TABLET BY MOUTH EVERY DAY active Not Available Not Available No t Available hydrocodone 5 mg-acetamin ophen 325 mg tablet 01/18 completed Not Available Not Available Not Available lisinopril 20 mg tablet TAKE 1 TABLET BY MOUTH EVERY DAY active Not Available Not Available No t Available alendronate 70 mg tablet TAKE 1 TABLET BY MOUTH ONE TIME PER WEEK active Not Available Not Available No t Available triamcinolo ne acetonide 0.1 % topical cream 01/22 completed Not Available Not Available Not Available ketorolac 0.5 % eye drops INSTILL 1 DROP INTO SURGICAL EYE 3 TIMES DAILY STARTING 2 DAYS BEFORE SURGERY CONTINUE Q8DTCYR AFTER active Not Available Not Available No t Available levothyroxi ne 100 mcg tablet TAKE 1 TABLET BY MOUTH DAILY active Not Available Not Available No t Available prednisolon e acetate 1 % eye drops,suspe nsion INSTILL 1 DROP INTO THE SURGICAL EYE 3 TIMES DAILY STARTING AFTER SURGERY X3 WEEKS active Not Available Not Available No t Available betamethaso ne valerate 0.1 % topical cream APPLY TOPICALLY TWICE A DAY active Not Available Not Available No t Available ciprofloxac in 0.3 % eye drops INSTILL 1 DROP INTO SURGICAL EYE 3 TIMES DAILY BEGINNING 2 DAYS BEFORE SURGERY. CONTINUE X1 WEEK 02/10 completed Not Available Not Available Not Available pantoprazol e 40 mg tablet,maame yed release TAKE 1 TABLET BY MOUTH EVERY MORNING 02/10 completed Not Available Not Available Not Available erythromyci n 5 mg/gram (0.5 %) eye ointment APPLY TO AFFECTED EYELID ON LEFT EYE TWICE DAILY 02/10 completed Not Available Not Available Not Available levothyroxi ne 125 mcg tablet TAKE 1 TABLET BY MOUTH EVERY DAY active Not Available Not Available No t Available codeine 10 mg-guaifene sin 100 mg/5 mL oral liquid TAKE 10 ML BY MOUTH EVERY DAY AT BEDTIME NEEDED FOR COUGH 02/10 completed Not Available Not Available Not Available mupirocin 2 % topical ointment 01/18 completed Not Available Not Available Not Available furosemide 20 mg tablet TAKE 1 TABLET BY MOUTH EVERY DAY IN THE MORNING FOR 1 MONTH active Not Available Not Available No t Available ergocalcife rol (vitamin D2) 1,250 mcg (50,000 unit) capsule TAKE 1 CAPSULE BY MOUTH ONCE WEEKLY active Not Available Not Available No t Available doxycycline hyclate 20 mg tablet TAKE 1 TABLET BY MOUTH TWICE A DAY active Not Available Not Available No t Available fluticasone propionate 50 mcg/actuati on nasal spray,suspe nsion 2 SPRAY INTRANASA LLY DAILY ADMINISTE R INTO EACH NOSTRIL active Not Available Not Available No t Available levothyroxi ne 112 mcg tablet 112 MCG ORALLY DAILY active Not Available Not Available No t Available amoxicillin 875 mg-potassiu m clavulanate 125 mg tablet TAKE 1 TABLET BY MOUTH TWICE A DAY 02/12 completed Not Available Not Available Not Available neomycin 3.5 mg/g-polymy gilma B 10,000 unit/g-dexa meth 0.1 % eye oint APPLY TO THE LEFT EYE DIRECTED TWICE DAILY active Not Available Not Available No t Available Pneumovax-2 3 25 mcg/0.5 mL injection syringe 01/22 completed Not Available Not Available Not Available ezetimibe 10 mg tablet TAKE 1 TABLET BY MOUTH EVERY DAY active Not Available Not Available No t Available moxifloxaci n 0.5 % eye drops INSTILL 1 DROP IN LEFT EYE FOUR TIMES DAILY 02/10 completed Not Available Not Available Not Available Crestor 10 mg tablet 01/22 completed Not Available Not Available Not Available Prevnar 13 (PF) 0.5 mL intramuscul ar syringe 01/22 completed Not Available Not Available Not Available sodium,pota ssium,mag sulfates 17.5 gram-3.13 gram-1.6 gram oral soln TAKE DIRECTED PER WRITTEN INSTRUCTI ONS SENT TO YOU active Not Available Not Available No t Available OneTouch Verio test strips USE TO TEST ONCE DAILY active Not Available Not Available No t Available OneTouch Verio Flex Meter active Not Available Not Available Not Available Fluzone High-Dose 0769-1275 (PF) 180 mcg/0.5 mL intramuscul ar syringe 01/22 completed Not Available Not Available Not Available Fluzone High-Dose 8573-7442 (PF) 180 mcg/0.5 mL intramuscul ar syringe 01/22 completed Not Available Not Available Not Available Shingrix (PF) 50 mcg/0.5 mL intramuscul ar suspension, kit 01/22 completed Not Available Not Available Not Available Fluzone High-Dose 0421-7881 (PF) 180 mcg/0.5 mL intramuscul ar syringe 01/22 completed Not Available Not Available Not Available Fluzone High-Dose Quad 2019- (PF) 240 mcg/0.7 mL IM syringe 01/22 completed Not Available Not Available Not Available Paxlovid 300 mg (150 mg x 2)-100 mg tablets in a dose pack TAKE 2 NIRMATREL VIR TABLETS AND 1 RITONAVIR TABLET BY MOUTH TWICE DAILY X5 DAYS *NO ATORVASTA TIN* 02/10 completed Not Available Not Available Not Available Vitals Date Recorded Body height Body mass index (BMI) Body weight Systolic And Diastolic Provider Name and Address Organization Details Last Updated DateTime 11/12/2024 162.56 cm 31.2 kg/m2 01045.96 g 171/76 mm[Hg] ANGELINA Figueroa [place] - [facility] 11/12/2024 14:05:03 Date Recorded Body height Body mass index (BMI) Body weight Systolic And Diastolic Provider Name and Address Organization Details Last Updated DateTime 01/22/2022 162.56 cm 31.3 kg/m2 82635.61 g 142/80 mm[Hg] ANGELINA Figueroa [facility] 01/22/2022 10:08:39 Date Recorded Body weight Systolic And Diastolic Provider Name and Address Organization Details Last Updated DateTime 01/23/2023 91344.85 g 132/58 mm[Hg] Cathleen Ames RN [facility] 01/23/2023 09:53:12 Date Recorded Body height Body mass index (BMI) Body weight Systolic And Diastolic Systolic And Diastolic Provider Name and Address Organization Details Last Updated DateTime 02/10/2023 162.56 cm 30.1 kg/m2 35966.1 g 168/102 mm[Hg] 146/92 mm[Hg] Sylvia Olivares Modesta [facility] 12:07:54 Date Recorded Body height Body mass index (BMI) Body weight Systolic And Diastolic Provider Name and Address Organization Details Last Updated DateTime 02/13/2024 162.56 cm 30.6 kg/m2 92927.87 g 160/84 mm[Hg] Mere Triana Modesta [facility] 02/13/2024 10:57:18 Social History Question Answer Notes LastModified by Organizat ion Details LastModified Time Tobacco Smoking Status Former Smoker Quit 2019 ANGELINA Figueroa null, [facility] 01/22/2022 10:09:07 Do You Have An Advance Directive? No [id number] Information not available 03/21/2020 Is Blood Transfusion Acceptable In An Emergency? Yes [id number] Information not available 03/21/2020 What Is Your Level Of Caffeine Consumption? Occasional [id number] Information not available 03/21/2020 How Much Tobacco Do You Chew? None [id number] Information not available 03/21/2020 In The 14 Days Before Symptom Onset, Have You Had Close Contact With A Laboratory-confir med COVID-19 While That Case Was Ill? No Information not available 01/18/2021 In The 14 Days Before Symptom Onset, Have You Had Close Contact With A Person Who Is Under Investigation For COVID-19 While That Person Was Ill? No Information not available 01/18/2021 Have You Been To An Area Known To Be High Risk For COVID-19? No Information not available 01/18/2021 What Type Of Diet Are You Following? REGULAR [id number] Information not available 03/21/2020 What Was The Date Of Your Most Recent Tobacco Screening? 02/13/2024 Information not available 02/13/2024 How Many Children Do You Have? 0 [id number] Information not available 03/21/2020 What Is Your Current Pack Years? [email or web address] Information not available 01/18/2021 Performs Monthly Self-breast Exam? Yes Information no t available 01/17/2020 Do You Use Protection During Sex? Usually [id number] Information not available 03/21/2020 What Is Your Relationship Status? [id number] Information not available 03/21/2020 Seat Belts Used Routinely Yes Information not available 01/17/2020 At What Age Did You Start Smoking Tobacco? 28 Information not available 01/18/2021 How Much Tobacco Do You Smoke? 1 PPD [id number] Information not available 03/21/2020 General Stress Level Low Information not available 01/17/2020 Do You Use Sunscreen Routinely? Yes [id number] Information not available 03/21/2020 Has Tobacco Cessation Counseling Been Provided? No Information not available 01/18/2021 On What Date Was Tobacco Cessation Counseling Provided? 02/13/2024 Information not available 02/13/2024 How Many Years Have You Smoked Tobacco? 42 [id number] Information not available 03/21/2020 Sex: Female Functional Status Question Answer Note LastModified by Organizat ion Details LastModified Time Do you or have you ever used any other forms of tobacco or nicotine? No Information not available 01/18/2021 What is your level of alcohol consumption? None [id number] Information not available 03/21/2020 Do you or have you ever used smokeless tobacco? Never used smokeless tobacco [id number] Information not available 03/21/2020 Do you or have you ever used e-cigarettes or vape? Never used electronic cigarettes [id number] Information not available 03/21/2020 What is your exercise level? None [id number] Information not available 03/21/2020 Mental Status None recorded. Family History Relationship Description Onset Age of this Age Resolved Age Notes LastModified by Organization Details LastModified Time Mother Malignant tumor of breast [email or web address] Not available 10:17:33 Medical History Condition Response Seizures/Epilepsy Y Depression Y High Cholesterol Y Gynecological History Statement/Question Response Abnormal Pap N Menses Monthly N STIs/STDs N HPV Vaccine N Date of Last Pap Smear 01/02/2017 Sexual Problems? N Current Control Method Menopause Most Recent Mammogram 11/10/2023 LMP Definite Obstetrics History GPAL:G 0 P 0 0 0 0 Past Encounters Encounter ID Performer Location Encounter Start Date Encounter Closed Date Diagnosis/Indication Diagnosis SNOMED-CT Code Diagnosis ICD10 Code Diagnosis Note [id number] [place] [address] [address] [place] [address] 10/06/2014 11:02:15 10/06/2014 12:09:12 Gynecologic examination 44057258 Menopause present 092721022 Screening for malignant neoplasm of breast 699675909 [id number] MD Ashley Meza ([place] [address]) [address] [place] [address] 11/03/2015 10:07:25 11/03/2015 11:45:56 Gynecologic examination 03374281 Z01.419 Menopause present 710056 006 N95.1 Screening for malignant neoplasm of breast 307448243 Z12.31 Screening for malignant neoplasm of colon 536230806 Z12.11 [id number] MD Ashley Meza ([facility]) [address] [place] [address] 01/02/2017 09:43:38 01/02/2017 11:41:54 Screening for malignant neoplasm of colon 127181360 Z12.11 Gynecologi c examination 88257164 Z01.419 Screening for malignant neoplasm of breast 027636343 Z12.31 [id number] MD Ashley Meza [address] [place] [address] 01/05/2018 10:36:28 01/08/2018 13:12:57 Screening for malignant neoplasm of colon 735840486 Z12.11 Gynecologi c examination 85639301 Z01.419 Screening for malignant neoplasm of breast 722834895 Z12.31 [id number] MD Ashley Meza [address] [place] [address] 01/07/2019 09:35:37 01/08/2019 12:03:48 Screening for malignant neoplasm of colon 018457223 Z12.11 Gynecologi c examination 67774444 Z01.419 Screening for malignant neoplasm of breast 371421670 Z12.31 Menopause present 924948 006 N95.1 [id number] MD Ashley Meza [address] [facility] [place] [address] 01/17/2020 10:40:41 01/18/2020 12:02:31 Gynecologic examination 01059361 Z01.419 Menopause present 400100 006 N95.1 Screening for malignant neoplasm of colon 642179563 Z12.11 [id number] MD Ashley Meza [address] [place] [address] 01/18/2021 09:37:17 01/19/2021 07:55:09 Gynecologic examination 03184485 Z01.419 Menopause present 762644 006 N95.1 [id number] MD Ashley Meza [address] [place] [address] 01/22/2022 09:33:21 01/24/2022 11:09:22 Gynecologic examination 40960894 Z01.419 Menopause present 238332 006 N95.1 Screening for malignant neoplasm of breast 636922953 Z12.31 [id number] MD Ashley Meza [address] [place] [address] 01/23/2023 09:28:44 01/28/2023 03:48:08 [id number] MD Ashley Meza [address] [place] [address] 02/10/2023 11:34:06 02/12/2023 09:14:56 Gynecologic examination 77057008 Z01.419 Menopause present 651013 006 N95.1 [id number] MD Ashley Meza [address] [facility] [place] [address] 02/13/2024 10:34:09 02/16/2024 08:32:35 Gynecologic examination 74102913 Z01.419 Menopause present 132248 006 N95.1 [id number] MD Ashley Meza 14 [address] [facility] [place] [address] 11/12/2024 13:23:15 11/15/2024 11:00:31 Depression screening negative 8917139122 47176 Z13.31 Score is 2 Postmenopa usal bleeding 26981446 N95.0 Health Concerns Section Related Observation LastModified by Organization Detai ls LastModified Time None Recorded Concern Status LastModified by Organization Details LastModified Time None Recorded Advance Directives Directive N: Payers Insurance Date Sequence Insurance Name Policy Number Policy Fuller Covered Member ID Fuller Member ID Guarantor Name 02/18/2024 1 [place] Edis Lopez [id number] Edis [facility]man-[facility] 02/18/2024 1 [employer] - DOS PRIOR TO 20 - [facility] BENEFITS PLAN [id number] Edis Garcia [id number] Edis [facility]man-[facility] 02/18/2024 [place] NGS [facility] Edis Lopez [id number] Edis [facility]man-[facility] 02/18/2024 1 [facility] (MEDICARE REPLACEMENT/ ADVANTAGE - HMO) [id number] Edis Lopez [id number] Edis Bowman-[facility] 12/07/2024 1 AET - [facility] (MEDICARE REPLACEMENT/ ADVANTAGE - HMO) [id number] Edis Lopez [id number] Edis [facility] 02/18/2024 2 [place] Edis Lopez [id number] Edis [facility] 02/18/2024 1 CLAUDIA (PPO) [id number] 1 Edis BowmanDallin [id number] Edis Bowman-[facility] wards OBGyn Episode No OBEpisode recorded.
--- OUTSIDE RECORDS SUMMARY | 2024-12-14 13:34 | XMS_ITS | Encounter Summary ---
Author Organization [facility] Address [address] [place] [address] Phone Care Team Providers Care Air Pollution Specialist Name Role Phone Prince Torres Primary Care Provider [phone] Tico Otoole MD Unavailable [phone] Reason for Visit * Reason Onset Date Comments Surgery 12/13/2024 Encounter Details Date Type Department Care Team (Late st Contact Info) Description 12/13/2024 Telephone [facility] Obstetrics and Gynecology [address] [facility] Advanced Medicine 13th [place] [address] [place] [address] Nico Husain MD [address] [place] [phone] [place] [address] Surgery Social History Tobacco Use Types Packs/Day Years Used Date Smoking Tobacco: Former Cigarettes Smokeless Tobacco: Never AUDIT-C Answer Date Recorded Q1: How often do you have a drink containing alcohol? Never 12/08/2024 Q2: How many drinks containi ng alcohol do you have on a typical day when you are drinking? Patient does not drink Q3: How often do you have si x or more drinks on one occasion? Never 12/08/2024 Personal Safety Answer Date Recorded Have you ever been in or are you currently in a harmful physical or emotional relationship or is someone making you feel afraid or unsafe? 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 Gender Identity Female 12/14/2024 6:31 AM CDT Sexual Orientation Straight 12/14/2024 6: 31 AM CDT documented as of this encounter Miscellaneous Notes * Telephone Encounter - Mablefederica Cornelia - 12/13/2024 2:06 PM CDT Called pt and LMOR asking her to call me back to set up surgery documented in this encounter Plan of Treatment Upcoming Encounters Date Type Department Care Team (Latest Contact Info) Description 12/30/2024 2:20 PM CDT Hospital Encounter [facility] [address] [place] [address] Nico Husain MD [address] [place] [phone] [place] [address] 12/30/2024 2:20 PM CDT - 12/30/2024 5:25 PM CDT Surgery [facility] Operating Room [address] [place] [address] Nico Husain MD [address] [place] [phone] [place] [address] XI HYSTERECTOMY - LAPAROSCOPIC ROBOTIC ASSISTED Scheduled Procedures Name Priority Associated Diagnoses Date/Ti me XI HYSTERECTOMY - LAPAROSCOPIC ROBOTIC ASSISTED Postmenopausal bleeding Endometrial cancer (HCC) 12/30/2024 2:20 PM CDT XI SALPINGO/OOPHORECTOMY - LAPAROSCOPIC ROBOTIC ASSISTED Postmenopausal bleeding Endometrial cancer (HCC) 12/30/2024 2:20 PM CDT XI ROBOTIC SENTINEL LYMPH NODE Postmenopausal bleeding Endometrial cancer (HCC) 12/30/2024 2:20 PM CDT documented as of this encounter Visit Diagnoses Not on filedocumented in this encounter Care Teams Air Pollution Specialist Relationship Specialty Start Date End Date Prince Torres DO [address] [address] PCP - General Internal Medicine 11/15/24 Tico Otoole MD [address] [facility] [address] JESSIE Qureshi [facility] [address] [place] [address] Consulting Physician Obstetrics and Gynecology 11/25/24 documented as of this encounter
--- OUTSIDE RECORDS SUMMARY | 2024-12-14 13:34 | XMS_ITS | Referral Summary ---
Author Organization [facility] Address [address] [place] [address] Care Team Providers Care Quality Process Engineer Name Role Phone Prince Torres Primary Care Provider [phone] Tico Otoole MD Unavailable [phone] Encounters Date Type Department Care Team Description 12/13/2024 Telephone [facility] Obstetrics and Gynecology [address] [facility] [address] [facility] 13th [place] [address] [place] [address] Nico Husain MD Surgery 12/08/2024 11:20 AM CDT Office Visit [facility] Gynecology/Oncolog y [address] [facility] [address] [place] [address] Nico Husain MD Postmenopausal bleeding (Primary Dx); Endometrial cancer (HCC) 12/02/2024 Telephone [facility] Obstetrics and Gynecology [address] [facility] [address] [facility] 13th [place] [address] [place] [phone] Eliane Garcia 12/01/2024 Telephone [facility] Obstetrics and Gynecology [address] [facility] 13th [place] [address] [place] [phone] Deysi Fallon 11/25/2024 1:30 PM CDT - 11/25/2024 2:30 PM CDT Surgery [facility] Operating Room [address] [place] [address] Tico Otoole MD DILATION AND CURETTAGE/HYSTEROSCOP Y 11/25/2024 1:23 PM CDT Anesthesia Event [facility] Operating Room [address] [place] [address] Kadeem Winkler DO Reynolds, Ethan Emerson, MD 11/25/2024 11:36 AM CDT - 11/25/2024 3:29 PM CDT Hospital Encounter [facility] Operating Room [address] [place] [address] Tico Otoole MD Postmenopausal bleeding Discharge Disposition: Discharge to home or self care from Last 3 Months Allergies Active Allergy Reactions Criticality Noted Date Comments Amoxicillin Diarrhea Low 11/22/2024 Bacitracin Rash Medium 04/21/2017 Other Rash Medium 04/21/2017 Adhesive on band-aids Sulfa (Sulfonamide Antibiotics) Rash,Swelling High 04/21/2017 Medications lisinopriL (PRINIVIL,ZESTRI L) 20 mg tablet Take 1 tablet (20 mg total) by mouth daily Active vnfd-tnj-nqk-saira -engw-paoo-wgh (Fiber 6) 1,000 mg tablet Take 2 tablets by mouth daily Active lactobacillus combination no.4 (Probiotic) 3 billion cell capsule Take 1 tablet by mouth daily Active mv-mn/folic ac/calcium/vit K1 (WOMEN'S 50 PLUS MULTIVITAMIN ORAL) Take 1 tablet by mouth daily Active potassium gluconate 595 mg (99 mg) tablet Take 1 tablet (595 mg total) by mouth daily Active aspirin 81 mg tablet Take 81 mg by mouth daily Active cetirizine-pseud oephedrine ER (ZyrTEC-D) 5-120 mg per 12 hr tablet Take 1 tablet by mouth daily Active levothyroxine (SYNTHROID) 100 mcg tablet Take 112 mcg by mouth daily Active ergocalciferol (Vitamin D2) 50,000 unit capsule Take 1 capsule (50,000 Units total) by mouth once a week Active doxycycline (PERIOSTAT) 20 mg tablet Take 1 tablet (20 mg total) by mouth 2 (two) times a day Active ezetimibe (ZETIA) 10 mg tablet Take 1 tablet (10 mg total) by mouth daily Active magnesium gluconate 200 mg tabletIndication s:hypomagnesemia Take 2.5 tablets (500 mg total) by mouth daily Active metFORMIN (GLUCOPHAGE) 500 mg tablet Take 1 tablet (500 mg total) by mouth 2 (two) times a day with meals 2 tablets in the am and 1 tablet in the pm Active fluticasone propionate (FLONASE) 50 mcg/actuation nasal spray Administer 1 spray into each nostril as needed for rhinitis Active cyanocobalamin (Vitamin B-12) 1,000 mcg tabletIndication s:Prevention of Vitamin B12 Deficiency Take 1 tablet (1,000 mcg total) by mouth 4 (four) times a week Active furosemide (LASIX) 20 mg tablet Take 1 tablet (20 mg total) by mouth as needed (swelling) Active blood-glucose meter (OneTouch Verio Flex meter) misc Active prednisoLONE acetate (PRED FORTE) 1 % ophthalmic suspension INSTILL 1 DROP INTO THE SURGICAL EYE 3 TIMES DAILY STARTING AFTER SURGERY X3 WEEKS Active neomycin-polymyx in B-dexAMETHasone (MAXITROL) 3.5 mg/g-10,000 unit/g-0.1 % ointment APPLY TO THE LEFT EYE DIRECTED TWICE DAILY Active ketorolac (ACULAR) 0.5 % ophthalmic solution INSTILL 1 DROP INTO SURGICAL EYE 3 TIMES DAILY STARTING 2 DAYS BEFORE SURGERY CONTINUE [id number] AFTER Active OneTouch Verio test strips strip 5 Active betamethasone valerate (VALISONE) 0.1 % cream Apply topically 2 (two) times a day Active sodium, potassium & mag sulfates (SUPREP BOWEL KIT) 17.5-3.13-1.6 gram recon soln TAKE DIRECTED PER WRITTEN INSTRUCTIONS SENT TO YOU Active acidophilus-pect in, citrus 100 million cell-10 mg capsule Take by mouth Activ e methylcellulose, laxative, (CITRUCEL) 500 mg tablet 1 tablet (500 mg total) Active Active Problems Problem Noted Date Diagnosed Date Endometrial cancer 12/08/2024 Postmenopausal bleeding 11/12/2024 Social History Tobacco Use Types Packs/Day Years Used Date Smoking Tobacco: Former Cigarettes Smokeless Tobacco: Never Tobacco Cessation:Counseling Given: Not Answered AUDIT-C Answer Date Recorded Q1: How often [...] on file Legal Sex Female 5:27 PM [employer] Gender Identity Female 12/14/2024 6:31 AM CDT Sexual Orientation Straight 12/14/2024 6: 31 AM CDT Last Filed Vital Signs Vital Sign Reading Time Taken Comments Blood Pressure 166/69 12/08/2024 11:21 AM CDT Pulse 105 12/08/2024 11:21 AM CDT Temperature 36.6 C (97.8 F) 12/08/2024 11:21 AM CDT Respiratory Rate 18 12/08/2024 11:21 AM CDT Oxygen Saturation 95% 12/08/2024 11:21 AM CDT Inhaled Oxygen Concentration - - Weight 82.6 kg (182 lb 3.2 oz) 12/08/2024 11:21 AM CDT Height 162.6 cm (5' 4) 12/08/2024 11:21 AM CDT Body Mass Index 31.27 12/08/2024 11:21 AM CDT Plan of Treatment Upcoming Encounters Date Type Department Care Team (Latest Contact Info) Description 12/30/2024 2:20 PM CDT Hospital Encounter [facility] Operating Room [address] [place] [phone] Nico Husain MD [address] [employer] [phone] [place] [address] 12/30/2024 2:20 PM CDT - 12/30/2024 5:25 PM CDT Surgery [facility] Operating Room [address] [place] [address] Nico Husain MD [address] [employer] [place] [employer] [phone] [place] [address] XI HYSTERECTOMY - LAPAROSCOPIC ROBOTIC ASSISTED Scheduled Procedures Name Priority Associated Diagnoses Date/Ti me XI HYSTERECTOMY - LAPAROSCOPIC ROBOTIC ASSISTED Postmenopausal bleeding Endometrial cancer (HCC) 12/30/2024 2:20 PM CDT XI SALPINGO/OOPHORECTOMY - LAPAROSCOPIC ROBOTIC ASSISTED Postmenopausal bleeding Endometrial cancer (HCC) 12/30/2024 2:20 PM CDT XI ROBOTIC SENTINEL LYMPH NODE Postmenopausal bleeding Endometrial cancer (HCC) 12/30/2024 2:20 PM CDT Goals Goal Patient Goal Type Associated Problems Recent Progress Patient-Stated? Author Autogenerat ed Goal Care Plan Autogenerated Problem No Alannah Mejias Procedures Procedure Name Priority Date/Time Associated Diagnosis Comments POCT GLUCOSE DEVICE Routine 11/25/2024 2 :19 PM CDT IN AN ELECTIVE SUPRAGLOTTIC AIRWAY Routine 11/25/2024 1:30 PM CDT DILATION AND CURETTAGE/HYSTEROSCOP Y 11/25/2024 1:08 PM CDT Postmenopausal bleeding ECG 12-LEAD STAT 11/25/2024 12:41 PM CDT DIFFERENTIAL AUTO STAT 11/25/2024 12: 32 PM CDT CBC WITH AUTO DIFFERENTIAL STAT 11/25/2024 12:32 PM CDT PROTIME-INR STAT 11/25/2024 12:32 PM CDT APTT STAT 11/25/2024 12:32 PM CDT POTASSIUM, WHOLE BLOOD STAT 11/25/2024 12:32 PM CDT POCT GLUCOSE DEVICE Routine 11/25/2024 1 2:29 PM CDT SURGICAL PATHOLOGY Routine 11/25/2024 8: 40 AM CDT Postmenopausal bleeding from Last 3 Months Results * POCT glucose (11/25/2024 2:19 PM CDT) Glucose, POC 104 70 - 199 mg/dL Blood 11/25/2024 2:19 PM CDT 11/25/2024 2:19 PM CDT Tico Otoole MD LAB POCT ORDERABLES - DEVICE Final Result Performing Organization Address City/[facility]/ZIP Co de Phone Number [facility] ([place]) 1 [facility] [place] [address] * IN AN ELECTIVE SUPRAGLOTTIC AIRWAY (11/25/2024 1:30 PM CDT) Narrative Nico Martin CRNA - 11/25/2024 1:30 PM CDT Nico Martin CRNA 11/25/2024 1:30 PM Airway Patient location: OR Urgency: elective Indications for airway management: anesthesia Difficult airway: no Staff: Placed by: CHIEF LIBRARIAN BRANCH: Nico Martin CRNA Emergent airway documentation: Risks and benefits discussed: yes Consent obtained: yes Consent given by: patient Airway prep: Preoxygenated: yes Patient position: sniffing MILS maintained throughout: yes Mask difficulty assessment: 0 - not attempted Sedation level during airway: GA Final airway details: Final airway type: supraglottic airway Final supraglottic airway: unique SGA size: 3 Number of attempts: 1 Kadeem Winkler DO ANESTHESIA ORDERABL ES Final Result * ECG 12 lead (11/25/2024 12:41 PM CDT) 11/25/2024 12:4 1 PM CDT Narrative [facility] - 11/25/2024 2:00 PM CDT Vent Rate: 98 bpm RR Interval: 608 msec IN Interval: 144 msec QRS Duration: 88 msec QT Interval: 349 msec QTC Interval: 405 msec P-R-T [place]: 50 - 33 - 45 degrees IMPRESSION: SINUS RHYTHM NORMAL ECG Electronically Signed By: Jose Arevalo MD Rohit Kaminski MD ECG ORDERABLES Final Result Performing Organization Address [facility]/ZIP Co de Phone Number [facility] [employer] [facility] * Potassium, whole blood (11/25/2024 12:32 PM CDT) Potassium, bld 3.7 3.3 - 4.9 mmol/L Comment: Interpretive Data This method is not able to assess for hemolysis, which may falsely increase potassium concentrations. If further testing is needed to evaluate this result, consider in-laboratory plasma potassium. Current Interpretive Data was last revised on 2022. Blood 11/25/2024 12:3 2 PM CDT 11/25/2024 12:34 PM CDT us Rohit Kaminski MD LAB BLOOD ORDERABLES F inal Result [facility] ([place]) 1 [facility] [place] [address] * Differential, auto (11/25/2024 12:32 PM CDT) Neutrophil abs 2.75 1.50 - 6.50 K/cumm Imm gran abs 0.01 0.00 - 0.10 K/cumm [facility] ([place]) Lymphocyte abs 1.90 0.80 - 3.30 K/cumm [facility] Monocyte abs 0.45 0.20 - 0.80 K/cumm [facility] ([place]) Eosinophil abs 0.16 0.00 - 0.50 K/cumm [facility] ([place]) Basophil abs 0.10 0.00 - 0.10 K/cumm [facility] ([place]) Neutrophil pct 51.1 % [facility] ([place]) Comment: Interpretive Data Percent cell count reference ranges are not reported, since discordance with absolute values may lead to misinterpretation of CBC data. Current Interpretive Data was last revised on 2017. Imm gran pct 0.2 % [facility] ([place]) Comment: Interpretive Data Percent cell count reference ranges are not reported, since discordance with absolute values may lead to misinterpretation of CBC data. Current Interpretive Data was last revised on 2017. Lymphocyte pct 35.4 % [facility] ([place]) Comment: Interpretive Data Percent cell count reference ranges are not reported, since discordance with absolute values may lead to misinterpretation of CBC data. Current Interpretive Data was last revised on 2017. Monocyte pct 8.4 % [facility] ([place]) Comment: Interpretive Data Percent cell count reference ranges are not reported, since discordance with absolute values may lead to misinterpretation of CBC data. Current Interpretive Data was last revised on 2017. Eosinophil pct 3.0 % [facility] ([place]) Comment: Interpretive Data Percent cell count reference ranges are not reported, since discordance with absolute values may lead to misinterpretation of CBC data. Current Interpretive Data was last revised on 2017. Basophil pct 1.9 % [facility] ([place]) Comment: Interpretive Data Percent cell count reference ranges are not reported, since discordance with absolute values may lead to misinterpretation of CBC data. Current Interpretive Data was last revised on 2017. Blood 11/25/2024 12:3 2 PM CDT 11/25/2024 12:34 PM CDT us Tico Otoole MD LAB BLOOD ORDERABLES F inal Result [facility] ([place]) 1 [facility] [place] [address] * (ABNORMAL) CBC with auto differential (11/25/2024 12:32 PM CDT) WBC 5.37 3.80 - 9.90 K/cumm Hgb 13.7 11.9 - 15.5 g/dL [facility] ([place]) Hct 39.1 35.6 - 45.5 % [facility] ([place]) Plt 158 150 - 400 K/cumm [facility] ([place]) MPV 9.0(L) 9.1 - 12.3 fL [facility] ([place]) RBC 3.98 3.90 - 5.20 M/cumm [facility] ([place]) MCV 98.2(H) 81.3 - 96.4 fL [facility] ([place]) MCH 34.4(H) 27.1 - 33.3 pg [facility] ([place]) MCHC 35.0 32.3 - 35.7 g/dL [facility] ([place]) RDW CV 12.7 11.1 - 14.9 % [facility] ([place]) RDW SD 45.3 35.7 - 48.1 fL [facility] ([place]) NRBC abs 0.00 0.00 - 0.01 K/cumm [facility] ([place]) Blood 11/25/2024 12:3 2 PM CDT 11/25/2024 12:34 PM CDT Tico Otoole MD LAB BLOOD ORDERABLES F inal Result Performing Organization Address [facility] Co de Phone Number [facility] ([place]) 1 [facility] [place] [address] * (ABNORMAL) aPTT (11/25/2024 12:32 PM CDT) aPTT 44(H) 28 - 38 sec [facility] ([place]) Comment: Interpretive Data Heparin therapeutic range: 66.0 - 100.0 seconds. Range based on correlation with therapeutic heparin activity range of 0.3 - 0.7 Units/mL. Current interpretive data was last revised on 2023. Blood 11/25/2024 12:3 2 PM CDT 11/25/2024 12:34 PM CDT Rohit Kaminski MD LAB BLOOD ORDERABLES F inal Result Performing Organization Address [facility] de Phone Number [facility] ([place] 1 [facility] [place] [address] * (ABNORMAL) Protime-INR (11/25/2024 12:32 PM CDT) PT 15.4(H) 9.7 - 13.0 sec [facility] ([place]) INR 1.42(H) 0.90 - 1.20 [facility] ([place]) Comment: Interpretive data Oral anticoagulant therapeutic ranges: Venous thromboembolism prophylaxis or treatment: 2.0-3.0 CARDIOLOGY Standard range: 2.0-3.0 High-intensity range: 2.5-3.5 Refer to indication-specific guidelines for appropriate target ranges for prosthetic heart valve replacement. Current interpretive data was last revised on 2019. Blood 11/25/2024 12:3 2 PM CDT 11/25/2024 12:34 PM CDT us Rohit Kaminski MD LAB BLOOD ORDERABLES F inal Result [facility] INCLUDE 234 BEDS AT THE [facility] ([place]) [address] [place] [address] [place] [address] * POCT glucose (11/25/2024 12:29 PM CDT) Glucose, POC 114 70 - 199 mg/dL Blood 11/25/2024 12:2 9 PM CDT 11/25/2024 12:29 PM CDT Tico Otoole MD LAB POCT ORDERABLES - DEVICE Final Result Performing Organization Address [facility] Co de Phone Number [facility] COUNTS INCLUDE 234 BEDS AT THE [facility] ([place]) [address] [place] [address] [place] [address] * Surgical pathology (11/25/2024 8:40 AM CDT) Tissue (Endometrial curettings) 11/25/2024 1:52 PM CDT Narrative PATHOLOGY COUNTS INCLUDE 234 BEDS AT THE [facility] ([place] - 11/30/2024 8:45 AM CDT EPIC results best viewed via link to PDF [facility] Department of Pathology [address] [place] [id number] Note to Patients: This report may contain a detailed description of human tissue sent by a health care provider to the laboratory for pathologic evaluation. The content of this report is essential for diagnosis and may provide important critical findings. This information may be unfamiliar to patients to review without a medical professional present. It is advised that the patient review this report in the presence of a health care provider who can answer questions and explain the details. Final Report with Addendum Patient Name: EDIS MONROY [address]: [address] [place] [address] Gender: F : 1950 (Age: 74) Service: Surgery Location: [facility] : [id number] Hospital #: [id number] Patient Type: [facility] Taken: 11/25/2024 Received: 11/26/2024 Accessioned: 11/26/2024 Reported: 11/30/2024 Physician(s):You Otoole M.D. Diagnosis: Endometrium, curettings: - Endometrial endometrioid adenocarcinoma, FIGO Grade 2. - Pending mismatch repair protein immunohistochemistry. Milton Roy M.D. Report Electronically Reviewed and Signed Out By Milton Roy M.D. 11/30/2024 08:45:58 Procedure/Addenda: Addendum Addendum Comment This addendum is being added to report the results of additional immunohistochemical stains. A panel to assess mismatch repair protein expression was performed on block A3 with adequate controls. There is no loss of expression of MLH1, PMS2, MSH2, or MSH6. The findings are consistent with a microsatellite stable lesion by immunohistochemistry ([facility]ENRY). Milton Roy M.D.Report Electronically Reviewed and Signed Out By Milton Roy M.D. 12/01/2024 08:54:53 Specimen(s) Received: A: Endometrial curettings Microscopic Description: Sections show fragments of endometrium significant for an adenocarcinoma. Several fragments show glandular formation with back to back glands and a cribriform growth pattern. Other areas show more of a solid architecture (25-30% of the tumor). There is a background of necrosis present. Morphologically, the findings are most consistent with an endometrioid adenocarcinoma. In order to confirm the diagnosis, a panel of immunohistochemical stains was performed with adequate controls on block A3. A p53 and p16 show an overall mosaic type expression pattern. The lesional cells are positive for ER and IN. The findings are consistent with an endometrial adenocarcinoma, FIGO Grade 2. A panel to assess mismatch repair protein expression has been ordered and will be reported in an addendum. Clinical History: Postmenopausal bleeding. Dilation and curettage/hysteroscopy. Gross Description: The specimen is submitted in a single formalin filled container labeled [facility] and endometrial curettings. It is it is an approximate 5 5 cc aggregate of multiple pink-zuniga mucosal tissue fragments and blood. All in 3 cassettes. Damian Niño R.N., PAmari/Liseth Hernández M.D. REPORT IMAGES AND SCANNED DOCUMENTS, IF INCLUDED, ONLY VIEWABLE IN PDF VERSION OF REPORT The performance characteristics of some immunohistochemical stains, fluorescence in-situ hybridization tests and immunophenotyping by flow cytometry cited in this report (if any) were determined by the Surgical Pathology Department at [facility] as part of an ongoing quality improvement analyst program and in compliance with federally mandated regulations drawn from the Clinical Laboratory Improvement Act of 1988 (CLIA '88). Some of these tests rely on the use of analyte specific reagents and are subject to specific labeling requirements by the US Food and Drug Administration. Such diagnostic tests may only be performed in a facility that is certified by the Department of Health and Human Services as a high complexity laboratory under CLIA '88. The FDA has determined that such clearance or approval is not necessary. This test is used for clinical purposes. It should not be regarded as investigational or for research. Nevertheless, federal rules concerning the medical use of analyte specific reagents require that the following disclaimer be attached to the report: This test was developed and its performance characteristics determined by the Surgical Pathology Department [facility]. It has not been cleared or approved by the U. S. Food and Drug Administration. Note for decalcified specimens: This assay has not been validated on decalcified tissues. Results should be interpreted with caution given the possibility of false negativity on decalcified specimens Tico Otoole MD LAB PATHOLOGY ORDERABL ES Final Result Performing Organization Address City/State/[facility] Co de Phone Number PATHOLOGY COUNTS INCLUDE 234 BEDS AT THE [facility] ([facility] [address] [place] [address] from Last 3 Months Additional Health Concerns Active Problems Noted Date Diagnosed Date Autogenerated Problem 12/14/2024 Insurance [employer] MEDICARE AET MEDICARE Care Teams Quality Process Engineer Relationship Specialty Start Date End Date Prince Torres DO [address] [facility] [address] [place] [address] PCP - General Internal Medicine 11/15/24 Tico Otoole MD [address] [place] [address] [address] [facility] [address] [place] [address] Consulting Physician Obstetrics and Gynecology 11/25/24
--- OUTSIDE RECORDS SUMMARY | 2024-12-14 13:34 | XMS_ITS | Clinical Summary ---
Author Organization [facility] Address [address] [place] [address] Care Team Providers Care Warper Fixer Name Role Phone Prince Torres Primary Care Provider [phone] Tico Otoole MD Unavailable [phone] Allergies Active Allergy Reactions Criticality Noted Date Comments Amoxicillin Diarrhea Low 11/22/2024 Bacitracin Rash Medium 04/21/2017 Other Rash Medium 04/21/2017 Adhesive on band-aids Sulfa (Sulfonamide Antibiotics) Rash,Swelling High 04/21/2017 Medications lisinopriL (PRINIVIL,ZESTRI L) 20 mg tablet Take 1 tablet (20 mg total) by mouth daily Active hlei-qjf-hnu-saira -mvvk-lncs-krh (Fiber 6) 1,000 mg tablet Take 2 [...] DAILY STARTING 2 DAYS BEFORE SURGERY CONTINUE [id number] AFTER Active OneTouch Verio test strips strip [...] Date Endometrial cancer 12/08/2024 Postmenopausal bleeding 11/12/2024 Encounters Date Type Department Care Team Description 12/13/2024 Telephone [facility] Obstetrics and Gynecology [address] [facility] Advanced Medicine 13th [place] [address] [place] [address] Nico Husain MD Surgery 12/08/2024 11:20 AM CDT Office Visit [facility] Gynecology/Oncolog y [address] [facility] [address] [place] [address] Nico Husain MD Postmenopausal bleeding (Primary Dx); Endometrial cancer (HCC) 12/02/2024 Telephone [facility] Obstetrics and Gynecology [address] Advanced Medicine 13th [place] [address] [place] [address] Eliane Garcia 12/01/2024 Telephone [facility] Obstetrics and Gynecology [address] Advanced Medicine 13th [place] [address] [place] [address] Deysi Fallon Pamela 11/25/2024 1:30 PM CDT - 11/25/2024 2:30 PM CDT Surgery [facility] Operating Room [address] [place] [address] Tico Otoole MD DILATION AND CURETTAGE/HYSTEROSCOP Y 11/25/2024 1:23 PM CDT Anesthesia Event [facility] Operating Room [address] [place] [address] Kadeem Winkler DO Reynolds, Ethan Emerson, MD 11/25/2024 11:36 AM CDT - 11/25/2024 3:29 PM CDT Hospital Encounter [facility] Operating Room [address] [place] [address] Tico Otoole MD Postmenopausal bleeding Discharge Disposition: Discharge to home or self care from Last 3 Months Surgical History Surgery Date Site/Laterality Comments EYE SURGERY Bilateral cataracts COLONOSCOPY 11/13/2024 TUBAL LIGATION Medical History Medical History Date Comments Hypertension Type 2 diabetes mellitus (HCC) Hypothyroidism Anxiety HLD (hyperlipidemia) Seasonal allergies Edema of both lower legs Cirrhosis (HCC) Family History Medical History Relation Name Comments No Known Problems Brother Heart attack Father Breast cancer Mother Scleroderma Sister Relation Name Status Comments Brother Alive Father Mother Sister Social History Tobacco Use Types Packs/Day Years [...] on file Legal Sex Female 5:27 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 Gender Identity Female 12/14/2024 6:31 AM CDT Sexual Orientation Straight 12/14/2024 6: 31 AM CDT Obstetrics History Para Term AB IAB SAB Ectopic Multiple Livin g Live Births 0 0 0 0 0 0 0 0 0 0 0 Last Filed Vital Signs Vital Sign Reading [...] Description 12/30/2024 2:20 PM CDT Hospital Encounter [facility] Operating Room [address] [place] [address] Nico Husain MD [id number] [place] [address] 12/30/2024 2:20 PM CDT - 12/30/2024 5:25 PM CDT Surgery [facility] Operating Room [address] [place] [address] Nico Husain MD [id number] [place] [address] XI HYSTERECTOMY - LAPAROSCOPIC ROBOTIC ASSISTED Scheduled Procedures Name Priority Associated Diagnoses Date/Ti me XI HYSTERECTOMY - LAPAROSCOPIC ROBOTIC ASSISTED Postmenopausal bleeding Endometrial cancer (HCC) 12/30/2024 2:20 PM CDT XI SALPINGO/OOPHORECTOMY - LAPAROSCOPIC ROBOTIC ASSISTED Postmenopausal bleeding Endometrial cancer (HCC) 12/30/2024 2:20 PM CDT XI ROBOTIC SENTINEL LYMPH NODE Postmenopausal bleeding Endometrial cancer (HCC) 12/30/2024 2:20 PM CDT Health Maintenance Due Date Last Done Comments Colon Cancer Screening-Colonoscopy 1950 Depression Screening 1950 Hepatitis C Screening 1950 Osteoporosis Screening-Bone Density Scan 1950 DTaP/Tdap/Td Vaccine (1 - Tdap) 1960 Hepatitis B Screening 1967 Well Visit 65+ 2014 Influenza Vaccine (#1) 2025 , 03/03/2023, 02/26/2022, Additional history exists Fall Risk Assessment 11/25/2025 11/25/2024 Zoster Vaccine Completed 06/02/2018, 02/16, 07/15/2014 Pneumococcal vaccine 65+ Completed 024, 01/16/2018, 01/15/2017 Covid-19 Vaccine Completed 09/17/2024, , 04/21/2023, Additional history exists Goals Goal Patient Goal Type Associated Problems Recent Progress Patient-Stated? Author Autogenerat ed Goal Care Plan Autogenerated Problem No Alannah Mejias Procedures Procedure Name Priority Date/Time Associated Diagnosis Comments POCT GLUCOSE DEVICE Routine 11/25/2024 2 :19 PM CDT AZ AN ELECTIVE SUPRAGLOTTIC AIRWAY Routine 11/25/2024 1:30 [...] 2:19 PM CDT 11/25/2024 2:19 PM CDT us Tico Otoole MD LAB POCT ORDERABLES - DEVICE Final Result Performing Organization Address City/State/[facility] Co de Phone Number [facility] [place] [facility] Department [place] [address] * AZ AN ELECTIVE SUPRAGLOTTIC AIRWAY (11/25/2024 1:30 PM CDT) Narrative Nico Martin CRNA - 11/25/2024 1:30 PM CDT Nico Martin CRNA 11/25/2024 1:30 PM Airway Patient location: OR Urgency: elective Indications for airway management: anesthesia Difficult airway: no Staff: Placed by: UTILIZATION REVIEW RN: Nico Martin CRNA Emergent airway documentation: Risks [...] CDT) 11/25/2024 12:4 1 PM CDT Narrative [facility] - 11/25/2024 2:00 PM CDT Vent Rate: 98 bpm RR Interval: 608 msec AZ Interval: 144 msec QRS Duration: 88 msec QT Interval: 349 msec QTC Interval: 405 msec P-R-T Joaquin: 50 - 33 - 45 degrees IMPRESSION: SINUS RHYTHM NORMAL ECG Electronically Signed By: Jose Arevalo MD Rohit Kaminski MD ECG ORDERABLES Final Result Performing Organization Address City/[facility] Co de Phone Number [facility] [employer] [facility] * Potassium, whole blood (11/25/2024 12:32 [...] LAB BLOOD ORDERABLES F inal Result [facility] ([place]) 1 [facility] Department [place] [address] * Differential, auto (11/25/2024 12:32 PM CDT) Neutrophil abs 2.75 1.50 - 6.50 K/cumm Imm gran abs 0.01 0.00 - 0.10 K/cumm [facility] Lymphocyte abs 1.90 0.80 - 3.30 K/cumm [facility] Monocyte abs 0.45 0.20 - 0.80 K/cumm [facility] ([place]) Eosinophil abs 0.16 0.00 - 0.50 K/cumm [facility] ([place]) Basophil abs 0.10 0.00 - 0.10 K/cumm [...] BLOOD ORDERABLES F inal Result [facility] ([place] [address] [facility] [employer] [place] [place] [address] * (ABNORMAL) CBC with auto differential (11/25/2024 [...] 34.4(H) 27.1 - 33.3 pg [facility] MCHC 35.0 32.3 - 35.7 g/dL [facility] RDW CV 12.7 11.1 - 14.9 % [facility] RDW SD 45.3 35.7 - 48.1 fL [facility] NRBC abs 0.00 0.00 - 0.01 K/cumm [facility] Blood 11/25/2024 12:3 2 PM CDT 11/25/2024 12:34 PM CDT us Tico Otoole MD LAB BLOOD ORDERABLES F inal Result [facility] ([place] [address] [facility] [place] [address] * (ABNORMAL) aPTT (11/25/2024 12:32 PM CDT) aPTT 44(H) 28 - 38 sec [facility] Comment: Interpretive Data Heparin therapeutic range: 66.0 - 100.0 seconds. Range based on correlation with therapeutic heparin activity range of 0.3 - 0.7 Units/mL. Current interpretive data was last revised on 2023. Blood 11/25/2024 12:3 2 PM CDT 11/25/2024 12:34 PM CDT Rohit Kaminski MD LAB BLOOD ORDERABLES F inal Result Performing Organization Address [facility] Co de Phone Number [facility] ([place]) [address] [facility] [place] [address] * (ABNORMAL) Protime-INR (11/25/2024 12:32 PM CDT) PT 15.4(H) 9.7 - 13.0 sec [facility] INR 1.42(H) 0.90 - 1.20 [facility] Comment: Interpretive data Oral anticoagulant therapeutic ranges: Venous thromboembolism prophylaxis or treatment: 2.0-3.0 CARDIOLOGY Standard range: 2.0-3.0 High-intensity range: 2.5-3.5 Refer to indication-specific guidelines for appropriate target ranges for prosthetic heart valve replacement. Current interpretive data was last revised on 2019. Blood 11/25/2024 12:3 2 PM CDT 11/25/2024 12:34 PM CDT Rohit Kaminski MD LAB BLOOD ORDERABLES F inal Result Performing Organization Address [facility] Co de Phone Number [facility] ([place] [address] [facility] [place] [address] * POCT glucose (11/25/2024 12:29 PM CDT) Glucose, POC 114 70 - 199 mg/dL Blood 11/25/2024 12:2 9 PM CDT 11/25/2024 12:29 PM CDT us Tico Otoole MD LAB POCT ORDERABLES - DEVICE Final Result [facility]) [address] [place] [address] Department [place] [address] * Surgical pathology (11/25/2024 8:40 AM CDT) Tissue (Endometrial curettings) 11/25/2024 1:52 PM CDT Narrative PATHOLOGY [facility] ([place]) - 11/30/2024 8:45 AM CDT EPIC results best viewed via link to PDF [facility] Department of Pathology [address] [place] [id number] Note to Patients: This report may contain [...] with Addendum Patient Name: EDIS MONROY Address: [address] [place] [address] Gender: F : 1950 (Age: 74) Service: Surgery Location: [facility] Hospital #: [id number] Patient Type: [facility] Taken: 11/25/2024 Received: 11/26/2024 Accessioned: 11/26/2024 Reported: [...] lesional cells are positive for ER and AZ. The findings are consistent with an endometrial adenocarcinoma, FIGO Grade 2. A panel to assess mismatch repair protein expression has been ordered and will be reported in an addendum. Clinical History: Postmenopausal bleeding. Dilation and curettage/hysteroscopy. Gross Description: The specimen is submitted in a single formalin filled container labeled EDIS MONROY and endometrial curettings. It is it is an approximate 5 5 cc aggregate of multiple pink-zuniga mucosal tissue fragments and blood. All in 3 cassettes. Damian Niño R.N., P.A./Liseth Hernández M.D. REPORT IMAGES AND SCANNED DOCUMENTS, IF INCLUDED, ONLY VIEWABLE IN PDF VERSION OF REPORT The performance characteristics of some immunohistochemical stains, fluorescence in-situ hybridization tests and immunophenotyping by flow cytometry cited in this report (if any) were determined by the Surgical Pathology Department at [facility] as part of an ongoing quality review trainer program and in compliance with federally mandated [...] characteristics determined by the Surgical Pathology Department [facility]. It has not been cleared or approved by the U. S. Food and Drug Administration. Note for decalcified specimens: This assay has not been validated on decalcified tissues. Results should be interpreted with caution given the possibility of false negativity on decalcified specimens Tico Otoole MD LAB PATHOLOGY ORDERABL ES Final Result [facility] ([place]) [address] [place] [address] from Last 3 Months Additional Health Concerns Active Problems Noted Date Diagnosed Date Autogenerated Problem 12/14/2024 Insurance T MEDICARE AET MEDICARE Care Teams Warper Fixer Relationship Specialty Start Date End Date Prince Torres DO [address] [facility] [address] [place] [address] PCP - General Internal Medicine 11/15/24 Tico Otoole MD [address] [place] [address] [address] [facility] [address] [place] [address] Consulting Physician Obstetrics and Gynecology 11/25/24
== END 2024-12-14 13:31 | disposition home or self-care (01) ==
PROVIDERS: PCP Internal Medicine; Visit Provider Internal Medicine
DX: M85.89 Other specified disorders of bone density and structure, multiple sites (principal); Z78.0 Asymptomatic menopausal state; Z13.820 Encounter for screening for osteoporosis
CPT/HCPCS: 77080